=== PATIENT | male | born 1995 | race Caucasian/White ===

== ENCOUNTER 2019-02-20 20:30 | Emergency (ER) | payer MEDICAID ==
[~2019-02-20] VITALS: Ht 170.2 cm; Wt 77.1 kg
[2019-02-20 20:36] VITALS: Ht 170.2 cm; Wt 77.1 kg
[2019-02-20 21:06] LABS: PLATELET COUNT 267 x10^3mcL (130-400)
[2019-02-20 21:09] LABS: RED CELL DISTRIBUTION WIDTH 14.8 % (11.5-14.5)
[2019-02-20 21:13] LABS: CALCIUM 9.6 mg/dL (8.5-10.1); CARBON DIOXIDE 21.3 mmol/L (21-32); CHLORIDE SERUM 100 mmol/L (98-107); CREATININE SERUM 1.3 mg/dL (0.7-1.3); GFR1 > 60 mL/min; GLUCOSE SERUM 118 mg/dL (74-106); POTASSIUM SERUM 3.9 mmol/L (3.5-5.1); SODIUM SERUM 141 mmol/L (136-145)
[2019-02-20 21:18] LABS: ALKALINE PHOSPHATASE 85 U/L (46-116); ALT/SGPT 32 U/L (16-63); AST/SGOT 33 U/L (15-37); BILIRUBIN TOTAL 0.82 mg/dL (0.20-1.00); CHOLESTEROL 144 mg/dL (<200); TRIGLYCERIDES 110 mg/dL (<150)
[2019-02-20 21:21] LABS: ALBUMIN 5.1 g/dL (3.4-5.0); CHOLESTEROL/HDL RATIO 2.1; HDL CHOLESTEROL 67 mg/dL (40-60); TOTAL PROTEIN, SERUM 8.9 g/dL (6.4-8.2)
[2019-02-20 21:24] LABS: BAND NEUTROPHIL 1 % (0-10); MONOCYTE 1 % (0-7); SEGMENTED NEUTROPHILS 93 % (37-75)
[2019-02-20 21:26] LABS: FREE T4 1.23 ng/dL (0.76-1.46); FREE THYROXINE INDEX 2.9 ug/dL (1.4-4.5); PLATELET MORPHOLOGY PLATELETS NORMAL; T4(THYROXINE) 9.2 ug/dL (4.7-13.3); rbc morphology (normal/abnorm) NORMAL (NORMAL)
[2019-02-20 22:05] LABS: T3 TOTAL 1.14 ng/mL
[2019-02-20 23:08] LABS: microscopic required? YES; urine erythrocyte TRACE (NEGATIVE)
[2019-02-20 23:17] LABS: AMPHETAMINE QUAL UR NONE DETECTED (See below)
[2019-02-20 23:33] VITALS: BP 116/55
== END 2019-02-20 23:33 | disposition home or self-care (01) ==
LOC: ED 20:30
PROVIDERS: Specialist
DX: R06.4 Hyperventilation (principal); F10.129 Alcohol abuse with intoxication, unspecified; D72.829 Elevated white blood cell count, unspecified; R11.2 Nausea with vomiting, unspecified
CPT/HCPCS: 83880; 84439; G0480; J2060; J7030

== ENCOUNTER 2020-03-13 16:42 | Emergency (ER) | payer SELFPAY ==
[~2020-03-13] VITALS: Ht 172.7 cm; Wt 74.8 kg
[2020-03-13 16:49] VITALS: Ht 172.7 cm; Wt 74.8 kg
== END 2020-03-13 18:27 | disposition home or self-care (01) ==
LOC: ED 16:42
DX: B34.9 Viral infection, unspecified (principal); R31.9 Hematuria, unspecified; Z20.828 Contact with and (suspected) exposure to other viral communicable diseases
CPT/HCPCS: U0003-CS